=== PATIENT | female | born 1970 | race African-American/Black ===

== ENCOUNTER 2020-11-20 06:54 | Inpatient (IN) | payer OTHER ==
[~2020-11-20] VITALS: Ht 167.6 cm; Wt 81.4 kg
--- NOTE | ~2020-11-20 | EMS ---
[address] [address] EMS Patient Care Report Name: AYO BAILEY Room #: 458-P ADM IN M.R.#: [id number] Admission: 11/20/20 Attend Phys: Juliann Padgett MD Discharge: Date of : 70 Report #: [id number] THIS REPORT FOR: //name// Report Transmitted: 11/24/2020 14:13 EMS Care Summary [place], [place]/[facility] Incident [id number] @ 11/20/2020 06:20 Incident Location [address], [place] [address] Patient AYO BAILEY Female, 50 Years 1970 Patient Address [address], [place] [address] Patient History Diabetes, Patient Allergies No known allergies, Patient Medications None Reported, Chief Complaint VOMMITING Disposition Transported No Lights/[place] Dispatch Reason Abdominal Pain/Problems Transported To [facility] Narrative SCENE: ON ARRIVAL PT FOUND AMBULATING TO EMS UNIT FROM ADDRESS PROVIDED. PT IS AWAKE AND ALERT WITH A GCS OF 15. PT C/O VOMITING FOR "A DAY AND A HALF". PT [address] [address] EMS Patient Care Report Name: AYO BAILEY Room #: 458-P ADM IN M.R.#: [id number] Admission: 11/20/20 Attend Phys: Juliann Padgett MD Discharge: Date of : 70 Report #: [id number] ASSISTED INTO EMS UNIT. AMBULANCE: VITALS MONITORED. NO CHANGES. Initial Vitals @06:39P: 100,R: 18,BP: 200/102,Pain: 6/10,GCS: 15,Revised Trauma: 12, @06:51P: 98,R: 18,BP: 202/98,GCS: 15,Revised Trauma: 12, Assessments @06:40MENTAL:No Abnormalities,SKIN:No Abnormalities,HEENT:Head/Face: No Abnormalities,Eyes: No Abnormalities,Neck/Airway: No Abnormalities,LUNG SOUNDS:General: Vomiting,ABDOMEN:General: Vomiting,PELVIS//GI:No Abnormalities,EXTREMITIES:Left Arm: No Abnormalities,Right Arm: No Abnormalities,Left Leg: No Abnormalities,Right Leg: No Abnormalities,PULSE:NEURO:No Abnormalities,@06:52MENTAL:No Abnormalities,SKIN:No Abnormalities,HEENT:Head/Face: No Abnormalities,Eyes: No Abnormalities,Neck/Airway: No Abnormalities,LUNG SOUNDS:General: Vomiting,ABDOMEN:General: Vomiting,PELVIS//GI:No Abnormalities,EXTREMITIES:Left Arm: No Abnormalities,Right Arm: No Abnormalities,Left Leg: No Abnormalities,Right Leg: No Abnormalities,PULSE:NEURO:No Abnormalities, Impression Vomiting Procedures @06:38ALS AssessmentResponse: UnchangedSucceeded@06:40StretcherResponse: Unchanged Timeline 06:17,Call Received 06:17,Dispatch Notified 06:20,Dispatched 06:24,En Route 06:37,On Scene 06:38,At Patient 06:38,ALS Assessment,Response: UnchangedSucceeded, 06:39,BP: 200/102 M,PULSE: 100,RR: 18 R,SPO2: Ox,ETCO2: ,BG: ,PAIN: 6,GCS: 15, 06:39,Depart Scene 06:40,Stretcher,Response: Unchanged 06:51,BP: 202/98 M,PULSE: 98,RR: 18 R,SPO2: Ox,ETCO2: ,BG: ,PAIN: ,GCS: 15, 06:52,At Destination 06:59,Call Closed Disclaimer v1.1 Copyright 2020 [employer] [facility] [address] [place] [address] EMS Patient Care Report Name: AYO BAILEY Room #: 458-P ADM IN .R.#: [id number] Admission: 11/20/20 Attend Phys: Juliann Padgett MD Discharge: Date of : 70 Report #: [id number] This EMS Care Summary contains data elements from the applicable legal record (which may be displayed differently). It is designed to provide pertinent information for the following purposes: continuity of care, clinical quality, and state data reporting. The complete legal record is available to ED staff and administrators of the receiving hospital in [facility]'s Patient Tracker. All data is provided "as is."
[~2020-11-20 06:54] MED LIST: BACTRIM DS TAB1 EACH PO; CARAFATE 1 GM TA1 G1 PO; COZAAR 50 MG TA50 M1 PO; DIFLUCAN150 MG PO; GLUCOTROL5 MG PO; HUMALOG100 UNIT/1; KLOR-CON M2020 MEQ PO; LOPRESSOR50 MG PO; METFORMIN HCL500 MG PO; MIRALAX255 GM PO; NORCO 5-325 TA1 EACH PO; NOVOLOG100 UNIT/1 SUBQ; PHENERGAN25 MG RE; PROTONIX40 M2 PO; STIMULANT LAXA1 EACH PO; TRANSDERM-SCOP1 EACH TRANSDERM; ZOFRAN ODT4 MG PO
[2020-11-20 07:00] VITALS: BP 195/94
[2020-11-20 07:38] LABS: ABSOLUTE NEUTROPHILS 9.5 thou/uL (1.4-8.2); BASOPHILS 0.2 % (0.0-2.0); HEMATOCRIT 44.6 % (37.0-47.0); HEMOGLOBIN 14.8 gm/dL (12.0-15.0); LYMPHOCYTES 4.3 % (24.0-44.0); MCH 29.8 pg (26.0-34.0); MCHC 33.2 g/dL (28.0-37.0); MCV 89.8 fL (80.0-100.0); MONOCYTES 1.2 % (1.0-8.0); PLATELET COUNT 332 thou/uL (150-400); POLYS 94.3 % (36.0-66.0); RBC 4.97 mil/uL (4.20-5.00); RDW 14.5 % (10.5-14.5); WBC 10.1 thou/uL (4.0-11.0)
[2020-11-20 07:47] LABS: CALCIUM 9.8 mg/dL (8.5-10.1); CREATININE 1.2 mg/dL (0.6-1.0); POTASSIUM 4.3 mmol/L (3.5-5.1)
[2020-11-20 07:53] LABS: ALBUMIN 3.7 g/dL (3.4-5.0); TOTAL BILIRUBIN 0.7 mg/dL (0.2-1.0); TOTAL PROTEIN 8.6 g/dL (6.4-8.2)
--- NOTE | 2020-11-20 12:06 | EKG ---
[address] [address] ELECTROCARDIOGRAM REPORT Name: AYO BAILEY Room #: 170-8 ADM IN M.R.#: [id number] Admission: 11/20/20 Attend Phys: Juliann Padgett MD Discharge: Date of : 70 Report #: [id number] [facility] ED Test Date: 2020-11-20 Test Time: 07:30:47 Pat Name: AYO SARABIAGE Department: Room: 170 Gender: F Sign Language Translator: IG : 1970 Requested By: Biju Chris Order Number: [id number] MD: Kevin Gill Measurements Intervals [place] Rate: 98 P: 74 HI: 190 QRS: 79 QRSD: 96 T: 34 QT: 362 QTc: 463 Interpretive Statements Sinus rhythm Probable left atrial enlargement Left ventricular hypertrophy Compared to ECG 10/08/2020 04:26:24 No significant changes Electronically Signed On 11-20-2020 12:06:19 CDT by Kevin Gill [email or web address] <ELECTRONICALLY SIGNED> By: Kevin Gill MD, [facility] 11/20/20 1206 0730 9 Kevin Gill MD, FACC /EPI
[2020-11-20 14:37] VITALS: BP 157/76
[2020-11-20 14:47] VITALS: BP 160/92
--- NOTE | 2020-11-20 15:39 | NUR ---
ASSUMED PT CARE UPON ADMISSION TO UNIT AROUND 1500. PATIENT IS A&OX4 AND ABLE TO MAKE NEEDS KNOW. PATIENT REPORTING NAUSEA, MEDICATED PER EMAR. PATIENT ANSWERS QUESTIONS THEN SOON AFTER WILL FALL ASLEEP. PATIENT HAS CALL LIGHT WITHIN REACH. IV PATENT, FLUIDS INFUSING.
[2020-11-20 17:06] VITALS: BP 180/94
[2020-11-20 19:11] VITALS: BP 174/73
[2020-11-21 00:36] VITALS: BP 126/92
--- NOTE | 2020-11-21 04:58 | NUR ---
ASSUMED CARE OF PT AT SHIFT CHANGE. PT IS AOX4 AND LETS NEEDS BE KNOWN. PT IS UP AD THIERRY. PT REPOTED NAUSEA AND VOMITING. PRN AND SCHEDULED ANTIEMETIC PROVIDED, HOWEVER PT IS STILL UNABLE TO TOLERATE PO. PT WAS PLACED NPO AT IN. ASSESSMENT CHARTED. PT DENIED SOA. PT SLEPT PART OF THE SHIFT. WILL CONTINUE TO MONITOR FOR CHANGES.
[2020-11-21 05:25] VITALS: BP 178/83
[2020-11-21 05:48] LABS: ABSOLUTE NEUTROPHILS 9.4 thou/uL (1.4-8.2); BASOPHILS 0.2 % (0.0-2.0); CALCIUM 9.7 mg/dL (8.5-10.1); CREATININE 1.1 mg/dL (0.6-1.0); HEMATOCRIT 45.5 % (37.0-47.0); HEMOGLOBIN 14.8 gm/dL (12.0-15.0); LYMPHOCYTES 5.7 % (24.0-44.0); MAGNESIUM 2.5 mg/dL (1.8-2.4); MCH 29.4 pg (26.0-34.0); MCHC 32.6 g/dL (28.0-37.0); MCV 90.1 fL (80.0-100.0); MONOCYTES 7.2 % (1.0-8.0); POLYS 86.9 % (36.0-66.0); POTASSIUM 4.4 mmol/L (3.5-5.1); RBC 5.05 mil/uL (4.20-5.00); RDW 14.6 % (10.5-14.5); WBC 10.8 thou/uL (4.0-11.0)
[2020-11-21 06:20] LABS: PLATELET COUNT 412 thou/uL (150-400)
[2020-11-21 07:40] VITALS: BP 178/95
--- NOTE | 2020-11-21 14:12 | NUR ---
ASSUMED PT CARE THIS AM. PT A&OX4, ABLE TO MAKE NEEDS KNOWN. PATIENT REPORTING NAUSEA AND VOMITING THAT DECREASE WITH ANTIEMETICS GIVEN. PATIENT REMAINS CONTINENT, AMBULATORY INDEPENDENTLY. PATIENT ON ROOM AIR. PATIENT REMAINS ON TELE. IV REMAINS PATENT, FLUIDS INFUSING. PATIENT ON A CLEAR LIQUID DIET TOLERATING SMALL AMOUNTS WITHOUT ISSUE. CALL LIGHT WITHIN REACH.
[2020-11-21 16:05] VITALS: BP 180/85
[2020-11-21 19:38] VITALS: BP 184/89
[2020-11-21 21:00] VITALS: BP 155/62
[2020-11-22 04:30] VITALS: BP 172/90
--- NOTE | 2020-11-22 06:12 | NUR ---
ASSUMED CARE OF PT AT SHIFT CHANGE. PT IS AOX4 AND LETS NEEDS BE KNOWN. FALL PRECAUTION IN PLACE. ASSESSMENT CHARTED. PT HAD HTN; PRNS PROVIDED. PT REPORTED ABD PAIN. PT REPORTS BEING LESS NAUSEATED THIS SHIFT. PT TOLERATED PO AND WAS PLACED NPO AT FL. PT TOOK SOME TYLENOL WITH A SIP OF WATER AROUND 0400. PT WAS ABLE TO SLEEP PART OF THE SHIFT. WILL CONTINUE TO MONITOR FOR CHANGES.
[2020-11-22 07:30] VITALS: BP 117/84
--- NOTE | 2020-11-22 11:44 | NUR ---
ASSUMED PT CARE THIS AM. PT A&OX4, ABLE TO MAKE NEEDS KNOWN. PATIENT REPORTING NAUSEA, MEDICATING PER EMAR. PATIENT HAD A GASTRIC EMPTYING STUDY COMPLETED THIS AM. PATIENT MORNING MEDICATIONS HELD AT THIS TIME DUE TO PATIENT REPORTING VOMITING AND WANTING TO WAIT TO TAKE PO MEDS. IV REMAINS PATENT, FLUIDS INFUSING. PATIENT ON A CLEAR LIQUID DIET. PATIENT REMAINS CONTIENT. CALL LIGHT WITHIN REACH.
[2020-11-22 15:25] VITALS: BP 168/65
--- NOTE | 2020-11-22 15:50 | NUR ---
PT ADMITTED RELATED TO ABDOMINAL PAIN, HYPERTENSION. CM REVIEWED CHART AND SPOKE WITH CARE TEAM. CM MET WITH PT AT BEDSIDE THIS DAY PT APPEARED TO BE A&O X4. CM ROLE INTRODUCED. PT INDICATED SHE RESIDES IN AN APARTMENT WITH HER CHILD WITH A FULL FLIGHT OF INTERIOR STEPS TO ENTER. PT INDICATED SHE HAD BEEN INDEPDNENT WITH GAIT AND ADLS LENS COATER. PT INDICATED SHE JUST RECENTLY GOT HEALTH INSURANCE AND THEREFOR HASN'T ESTABLISHED HERSELF WITH A PCP. CM DIRECTED HER TO CONTACT THE [facility] ON THE BACK OF HER INSURANCE CARE TO FIND IN NETWORK PROVIDERS. PT HAD GASTRIC EMPTYING STUDY BUT SHE INDICATED THAT THEY WEREN'T ABLE TO COMPLETE IT. CM FOLLOWING REGARDING NEEDS UPON DC.
[2020-11-22 21:12] VITALS: BP 181/78
[2020-11-23 00:44] VITALS: BP 160/75
--- NOTE | 2020-11-23 05:46 | NUR ---
Pt. c/o chronic nausea and abdominal pain and meds given for both (see emar) with some relief noted. She has been up ad gaviota. No observed emesis.
[2020-11-23 05:58] VITALS: BP 163/78
[2020-11-23 07:34] VITALS: BP 198/83
[2020-11-23 12:19] VITALS: BP 168/68
--- NOTE | 2020-11-23 14:56 | NUR ---
CARE TEAM INDICATED THAT PT IS STILL HAVING N/V AND THAT SHE ISN'T MEDICALLY STABLE TO DC HOME THIS DAY. CM FOLLOWING. IT IS ANTICIPATED THAT PT WILL LIKELY HAVE NO NEEDS UPON DC.
[2020-11-23 15:32] VITALS: BP 155/73
--- NOTE | 2020-11-23 19:40 | NUR ---
Assumed pt care at 7am. Pt in bed most of the time today. Assessment completed.vss.Pt c/o nausea and vomiting. Antinausea iv given but no resolve. Dr Mercado here,order noted.Fentanyl ivp given with relief. Report off to shawn rn.
[2020-11-23 20:09] VITALS: BP 166/70
[2020-11-24 00:53] VITALS: BP 146/73
--- NOTE | 2020-11-24 04:06 | NUR ---
Pt A/OX4,VSS C/o pain/nausea,medicated per EMAR with relief reported. Up ad gaviota. NSR on telemetry. Remains on clear liquid diet. Resting quietly w/o any distress noted. Will continue to monitor pt.
[2020-11-24 04:48] VITALS: BP 130/89
[2020-11-24 06:34] LABS: HEMATOCRIT 42.6 % (37.0-47.0); MCH 29.8 pg (26.0-34.0); MCHC 32.8 g/dL (28.0-37.0); MCV 90.7 fL (80.0-100.0); RBC 4.7 mil/uL (4.20-5.00); RDW 14.2 % (10.5-14.5); WBC 5.1 thou/uL (4.0-11.0)
[2020-11-24 06:50] LABS: CALCIUM 8.6 mg/dL (8.5-10.1); CREATININE 0.8 mg/dL (0.6-1.0); MAGNESIUM 1.8 mg/dL (1.8-2.4); POTASSIUM 3.2 mmol/L (3.5-5.1)
[2020-11-24 07:56] VITALS: BP 142/60
[2020-11-24 12:05] VITALS: BP 144/65
[2020-11-24 17:21] VITALS: BP 132/67
--- NOTE | 2020-11-24 18:45 | NUR ---
ASSUMED CARE OF PT AT 0700. PT IS AOX4 FEMALE WITH H PYLORI INFECTION AND NAUSEA VOMITTING. NAUSEA IN THE AM CONTROLLED BY ZOFRAN AND REGLAN X1. THROUGHOUT MIDDAY WAS ABLE TO CONTROL NAUSEA WITH SUCRALFATE AND REGLAN X1. TOLD PT SHE WOULD LIKE TO SEE HER CONSUME SOME FULL LIQUIDS AFTER REGLAN DOSE. PT WAS ABLE TO EAT HALF OF LUNCH AND DINNER AND NAUSEA WAS UNDER CONTROL FOR REST OF AFTERNOON. PT SHOWERED IN AFTERNOON AND IS NOW RESTING IN ROOM. WILL CONT TO MONITOR.
[2020-11-24 20:42] VITALS: BP 138/105
[2020-11-25 05:38] LABS: HEMATOCRIT 40.6 % (37.0-47.0); HEMOGLOBIN 13.5 gm/dL (12.0-15.0); MCH 29.9 pg (26.0-34.0); MCHC 33.2 g/dL (28.0-37.0); MCV 90.1 fL (80.0-100.0); RBC 4.51 mil/uL (4.20-5.00); RDW 14.4 % (10.5-14.5); WBC 4.3 thou/uL (4.0-11.0)
[2020-11-25 05:52] LABS: CALCIUM 8.4 mg/dL (8.5-10.1); CREATININE 0.9 mg/dL (0.6-1.0); MAGNESIUM 1.8 mg/dL (1.8-2.4); POTASSIUM 3.5 mmol/L (3.5-5.1)
[2020-11-25 07:00] VITALS: BP 121/64
--- NOTE | 2020-11-25 07:42 | NUR ---
PT SLEPT THROUGH THE NIGHT, REPORTS GERD BEING ADDRESSED BY THE CURRENT TX PLAN, NO ADVERSE REACTION NOTED, WILL CONTINUE TO MONITOR PT.
[2020-11-25 12:00] VITALS: BP 126/75
[2020-11-25 16:00] VITALS: BP 112/74
--- NOTE | 2020-11-25 18:07 | NUR ---
ASSUMED PT CARE AROUND 0715. PT A X OX 4, RA, STAND BY ASST TO BATHROOM. HAD A BM TODAY. IV LF FA/NS/75MLS/HR. DIET ADVANCE TO SOFT DIET AND TOLERATING WELL. FALL PRECT IN PLACE, CALL LIGHT IN REACH, WILL CALL APPROPRIATELY, HOURLY ROUNDS DONE.
[2020-11-25 20:35] VITALS: BP 132/68
[2020-11-26 00:28] VITALS: BP 111/62
[2020-11-26 04:00] LABS: CALCIUM 8.2 mg/dL (8.5-10.1); CREATININE 0.9 mg/dL (0.6-1.0); MAGNESIUM 1.7 mg/dL (1.8-2.4); POTASSIUM 3.2 mmol/L (3.5-5.1)
[2020-11-26 04:36] LABS: HEMATOCRIT 35.4 % (37.0-47.0); HEMOGLOBIN 11.6 gm/dL (12.0-15.0); MCH 29.8 pg (26.0-34.0); MCHC 32.9 g/dL (28.0-37.0); MCV 90.7 fL (80.0-100.0); RBC 3.91 mil/uL (4.20-5.00); WBC 4.5 thou/uL (4.0-11.0)
[2020-11-26 05:28] VITALS: BP 130/59
--- NOTE | 2020-11-26 05:49 | NUR ---
PT SLEPT THROUGH THE NIGHT VOICES CURRENT MEDICATION CHANGE IS MORE EFFECTIVE, REPORTS NO PAIN OR DISCOMFORT WILL CONTINUE TO MONITOR.
[2020-11-26 07:00] VITALS: BP 127/65
[2020-11-26] MEDS ORDERED: CLARITHROMYCIN250 M2 PO (09:46)
[2020-11-26] MEDS ORDERED: AMOXICILLIN 50500 M1 PO (09:50)
[2020-11-26] MEDS ORDERED: REGLAN 5 MG TAB5 MG PO (09:52)
[2020-11-26 14:00] VITALS: BP 127/65
[2020-11-26 14:07] VITALS: BP 127/65
--- NOTE | 2020-11-26 15:04 | NUR ---
PT DISCHARGED. IV REMOVED WITHOUT DIFFICULTY. CHART CHECKED FOR LAST MINUTE SIGNATURES. PT SIGNED ALL DOCUMENTS INCLUDING DISCHARGE PAPERS. WENT OVER DISCHARGE PAPERWORK, PT VERBALIZED UNDERSTANDING NO FURTHER QUESTIONS ASKED. PT INFORMED THAT SHE CAN CALL BACK AT ANYTIME WITH ANY QUESTIONS SHE MAY HAVE. TELE REMOVED BY PATIENT PRIOR TO SHOWER.
== END 2020-11-26 15:10 | disposition home or self-care (01) | DRG 305 ==
LOC: ER 06:54 → EROBS 10:51 → 4W 10:51
PROVIDERS: Emergency Medicine; Internal Medicine; Nurse Practitioner; ADMIT Hospitalist; ATTEND Hospitalist
DX: I16.0 Hypertensive urgency (principal); N17.9 Acute kidney failure, unspecified; I10 Essential (primary) hypertension; E11.65 Type 2 diabetes mellitus with hyperglycemia; D25.9 Leiomyoma of uterus, unspecified; K29.70 Gastritis, unspecified, without bleeding; Z79.4 Long term (current) use of insulin; Z90.49 Acquired absence of other specified parts of digestive tract
CPT/HCPCS: 10045